=== PATIENT | female | born 1975 | race Caucasian/White ===

== ENCOUNTER 2017-10-17 10:28 | Emergency (ER) | payer BC ==
[~2017-10-17] VITALS: Ht 154.9 cm; Wt 66.2 kg
[2017-10-17 10:28] VITALS: BP 133/87
--- NOTE | 2017-10-17 10:38 | NUR ---
AAOX3, C/O DIZZINESS, NAUSEA AND VOMITING X YESTERDAY. RR IS EVEN AND UNLABORED WITH NAD NOTED. SKIN IS WARM AND DRY. AWAITING MD FOR EVAL.
[2017-10-17] MEDS ORDERED: MECLIZINE HCL 25 MG TABLET ONE (11:15)
[2017-10-17] MEDS ORDERED: MECLIZINE HCL 12.5 MG TABLET PO ONE (11:30)
== END 2017-10-17 12:16 | disposition home or self-care (01) ==
LOC: ER 10:29
DX: H81.10 Benign paroxysmal vertigo, unspecified ear (principal); F41.9 Anxiety disorder, unspecified
CPT/HCPCS: 99282; A4606; J8597; Z7610